=== PATIENT | female | born 1975 | race Caucasian/White ===

== ENCOUNTER 2020-03-28 13:32 | Emergency (ER) | payer MEDICAID, SELFPAY ==
--- NOTE | ~2020-03-28 | XR_ITS ---
XR finger 2nd RT min 2V DATE: 03/28/2020 14:42 INDICATION: Laceration. Pain. TECHNIQUE: 3 views COMPARISON: None FINDINGS: There is soft tissue swelling, most prominent dorsally at the proximal interphalangeal join t. No radiopaque soft tissue foreign body or subcutaneous emphysema. No fracture, dislocation, periostea l reaction or bone destruction. IMPRESSION: Nonspecific soft tissue swelling; no fracture or dislocation or radiopaque foreign body Reviewed, dictated and finalized at location A. IMPRESSION: Nonspecific soft tissue swelling; no fracture or dislocation or rad iopaque foreign body
[2020-03-28 13:52] VITALS: BP 140/87; PULSE 104; RESP 13; TEMP 37.3; O2SAT 100
--- NOTE | 2020-03-28 14:15 | ED.WOUNDLAC ---
HPI - Wound/Laceration General Chief Complaint: Wound/Laceration Stated Complaint: cut r hand pointer finger Time Seen by Provider: 03/28/20 14:00 Source: patient Mode of arrival: ambulatory Limitations: no limitations History of Present Illness HPI narrative: 45-year-old woman who was previously well comes in today complaining of a laceration to the right index finger. Patient states that she was splitting wood and her hand slipped struck a piece of metal they were using to split the wood. She had gloves on at that time. She denies any numbness or tingling. She has not recall her last tetanus shot. Onset (ago): minute(s) (25) Extremity Location: Right: hand Place: outdoors Patient tetanus UTD: No Context: accidental Associated symptoms: pain and unable to move injured part Treatments prior to arrival: cold therapy and bandage Related Data Home Medications Medication Instructions Recorded Confirmed carbamazepine [Tegretol XR] 800 mg PO DAILY 03/28/20 03/28/20 quetiapine [Seroquel] 25 mg PO HS 03/28/20 03/28/20 Allergies Allergy/AdvReac Type Severity Reaction Status Date / Time No Known Allergies Allergy Verified 03/28/20 13:50 Review of Systems Constitutional: Constitutional: Denies chills, Denies fever(s) and Denies weakness Eyes: Eyes: Denies change in vision and Denies photophobia ENT: Denies dysphagia, Denies nasal congestion and Denies sore throat Cardiovascular: Cardiovascular: Denies chest pain and Denies radiating jaw, neck or arm pain Respiratory: Respiratory: Denies cough, Denies dyspnea and Denies wheezing Gastrointestinal: Gastrointestinal: Denies nausea and Denies vomiting Musculoskeletal: Musculoskeletal: Denies arthralgias and Denies joint swelling Integumentary/Breasts: Skin/Breast: Denies pruritus, Denies erythema and Denies rash Neurologic: Denies vertigo, Denies dizziness, Denies syncope, Denies numbness and Denies weakness Psychiatric: Psychiatric: Denies anxiety and Denies depression Endocrine: Endocrine: Denies polydipsia and Denies polyuria Hematologic/Lymphatic: Hematologic/Lymphatic: Denies easy bleeding and Denies easy bruising Allergic/Immunologic: Allergic/Immunologic: Denies lip swelling and Denies wheezing PMFSH Past Medical History Medical History Anemia Bipolar 2 disorder Scoliosis Surgical History Surgical History H/O Spinal surgery H/O thyroidectomy H/O: History of tubal ligation Social History Social History Smoking status: Current every day smoker Alcohol intake: former Substance use: former Substance use type: opiates Living arrangements: with family Exam Const: General: healthy appearing and alert Orientation/consciousness: patient oriented x3 Other: Mild acute distress Eyes: Conjunctivae: conjunctivae normal Pupils: Equal, round and reactive pupils present EOM: EOMs intact bilaterally Resp: Effort & Inspection: normal respiratory effort and not labored Auscultation: clear to auscultation bilaterally, no rales, no rhonchi and no wheezes Cardio: Rate: regular rate Rhythm: regular rhythm Heart sounds: no murmurs Skin: General skin exam: normal color and no jaundice Rashes: no rashes Other: 3.5 cm in length flap laceration just proximal to PIP of right index finger. Extensor and flexor tendons intact to challenge. distal neurovascular exam intact. Neuro: General: patient oriented x3, moves all extremities, no focal motor deficits and CN's II-XI intact bilaterally Extrem: General: normal to inspection and no clubbing, cyanosis or edema Psych: Appearance: grossly normal and well kempt Mental Status: mental status grossly normal Affect: normal affect Attitude: cooperative Thought content: Yes Normal thought content present Course Vital Signs Vit
[2020-03-28] MEDS: LIDOCAINE HCL 1% LOCAL INJ 20 ML VIAL 15 ML INFILTRATE (14:17)
[2020-03-28] MEDS: TETANUS,DIPHTHERIA,AC PERTUSSIS ADULT 0.5 ML (ADACEL) IM (14:30)
[2020-03-28 15:28] VITALS: PULSE 100; RESP 14; O2SAT 100
== END 2020-03-28 15:29 | disposition home or self-care (01) ==
PROVIDERS: Emergency Provider Emergency Medicine
DX: S61.210A Laceration without foreign body of right index finger without damage to nail, initial encounter (principal); W45.8XXA Other foreign body or object entering through skin, initial encounter
CPT/HCPCS: 12002; 73140; 90471; 90715; 99282; 99283; A9270